=== PATIENT | female | born 1935 | race Caucasian/White ===

== ENCOUNTER → 2018-11-30 | Day surgery (SDC) | payer OTHER ==
--- NOTE | 2018-12-01 14:21 | PATH ---
Surgical Pathology Report Patient Name: JOHN NEWSOME [facility]. Rec. #: [id number] /Age/Gender: 1935 (Age: 83) / F Account: [id number] Location: [facility] RADIOLOGY U Taken: 11/30/2018 Received: 11/30/2018 Reported: 12/01/2018 Physicians: Kathy Lovett M.D. Specimen(s) Received A: LEFT AXILLARY LYMPH NODE (SITE#1) CORE BX B: LEFT BREAST 1:00 6 CM FN (SITE#2) CORE BX Clinical History Palpable mass Ultrasound findings: Highly suspicious/malignant Final Diagnosis A. AXILLARY LYMPH NODE, LEFT (SITE #1), CORE BIOPSY: INVASIVE DUCTAL CARCINOMA, POORLY DIFFERENTIATED, EXTENSIVELY INVOLVING FIBROADIPOSE TISSUE. (SEE NOTE). Note: This may represent lymph node tissue extensively involved by metastatic carcinoma, however, no landmark lymph node tissue is identified. No glandular breast parenchyma is present. Correlation with radiologic findings is suggested. B. BREAST, LEFT, 1:00, 6 CM FN (SITE #2), CORE BIOPSY: INVASIVE DUCTAL CARCINOMA, POORLY DIFFERENTIATED, MEASURING AT LEAST 8 MM IN GREATEST DIMENSION IN THIS MATERIAL. Results of ER and OK studies performed on block B at [facility] are as follows: ER (clone [id number] mouse monoclonal antibody by [employer]): > 95 % nuclear staining with strong intensity (Positive). OK (clone16 mouse monoclonal antibody by [employer]): ~40 % nuclear staining with moderate to strong intensity (Positive). Results of Her2 & Ki67 studies will be reported separately in an addendum. Positive and negative controls (internal if applicable) show appropriate results. Formalin fixation and cold ischemic times are within current ASCO/CAP recommendations for ER, OK and Her2 testing. Electronically Signed Anjali Singh M.D. Addendum Reported: 12/02/2018 Addendum Diagnosis Results of Her2 (IHC) & Ki-67 studies performed on block B1 at [place], [place] ([id number]) are as follows: Her2 IHC (EP3 from [employer], formerly known as [id number], using [employer] Polymer Refine detection kit): 2+ (equivocal). Ki-67: 15-20% (intermediate proliferative index). Her2 FISH studies are being performed and the results will be reported separately in an additional addendum. Positive and negative controls (internal if applicable) show appropriate results. Anjali Singh M.D. Gross Description A. Received in formalin labeled "site 1 left core axilla lymph node," is a 1.7 x 1.0 x 0.2 cm aggregate of multiple johnson, irregular to cylindrical portions of fibroadipose tissue admixed with blood clot. The formalin is filtered and the specimen is entirely submitted in one cassette. B. Received in formalin labeled "site 2 left breast biopsy 1:00, 6 cmfn," is a 1.6 x 1.3 x 0.2 cm aggregate of multiple johnson-yellow, irregular to cylindrical portions of fibroadipose tissue admixed with blood clot. The formalin is filtered and the specimen is entirely submitted in one cassette. Time to formalin fixation: < 1 minute Total formalin fixation time: Approximately 8 hours. 11/30/2018 saudi11/30/2018
--- NOTE | 2018-12-01 16:42 | OP ---
DATE OF OPERATION: 11/30/2018 PREOPERATIVE DIAGNOSES: Left axillary lymph node, suspicious; and left breast mass, 1 o'clock, 6 cm from the nipple. POSTOPERATIVE DIAGNOSES: Left axillary lymph node, suspicious; and left breast mass, 1 o'clock, 6 cm from the nipple. PROCEDURE: Left axillary lymph node ultrasound-guided core biopsy with clip placement, and left breast ultrasound-guided core biopsy with clip placement. ANESTHESIA: Local. ATTENDING SURGEON: Kathy Lovett MD ESTIMATED BLOOD LOSS: Minimal. COMPLICATIONS: None. PROCEDURE: Patient was made aware of the risks and benefits of the procedure and consented. She was placed in the supine position. The left axillary region was approached first. Under sterile conditions, 1% lidocaine for local anesthesia, a small hammad was made in the skin. Using a 13-gauge suction biopsy device via inferolateral approach under ultrasound guidance, multiple cores were obtained and submitted to Pathology. Likewise under ultrasound guidance, a HydroMARK barrel clip was placed. The patient tolerated the procedure well. Steri-Strip and sterile bandage was applied. The left breast mass was then approached. Under sterile conditions, with 1% lidocaine for local anesthesia, a small hammad was made in the skin. Using a 13-gauge suction biopsy device via lateral approach under ultrasound guidance, multiple cores were obtained and submitted to Pathology. Likewise under ultrasound guidance, a clip was placed into the biopsy region. Well tolerated by patient. Steri-Strip and sterile bandage was applied. Will contact her with results. KATHY LOVETT M.D. [id number]
== END | disposition home or self-care (01) ==
LOC: FRADUS-SUR 09:17
PROVIDERS: ATTEND Surgery Surgical Oncology
PROC: 0HBU3ZX Excision of Left Breast, Percutaneous Approach, Diagnostic (ICD-10-PCS; principal; 2018-11-30)
PROC: 07B63ZX Excision of Left Axillary Lymphatic, Percutaneous Approach, Diagnostic (ICD-10-PCS; 2018-11-30)
PROC: BH47ZZZ Ultrasonography of Upper Extremity (ICD-10-PCS; 2018-11-30)
DX: C50.412 Malignant neoplasm of upper-outer quadrant of left female breast (principal); C77.3 Secondary and unspecified malignant neoplasm of axilla and upper limb lymph nodes; Z17.0 Estrogen receptor positive status [ER+]; N63.21 Unspecified lump in the left breast, upper outer quadrant; R59.9 Enlarged lymph nodes, unspecified
CPT/HCPCS: 19083; 76942-TC; 87899; 88305-TC; 88342-TC; A4648